=== PATIENT | male | born 1955 | race Caucasian/White ===

== ENCOUNTER 2018-09-14 13:58 | Outpatient (REF) | payer OTHER, SELFPAY ==
[2018-09-14 15:43] LABS: ALT 43 U/L (12-78); AST 32 U/L (15-37); Albumin 4.2 g/dL (3.4-5.0); Alkaline Phosphatase 86 U/L (46-116); Anion Gap 10.3 mmol/L (3-11); BUN 16 mg/dL (7-18); CO2 27.7 mmol/L (21.0-32.0); CREATININE 0.84 mg/dL (0.70-1.30); Calcium 9.3 mg/dL (8.5-10.1); Calculated LDL 111; Chloride 103 mmol/L (98-107); Cholesterol 202 mg/dL (50-200); Glucose 108 mg/dL (70-100); HDL Cholesterol 65 mg/dL (40-60); Potassium 4.6 mmol/L (3.5-5.1); Sodium 141 mmol/L (136-145); Total Protein 7.3 g/dL (6.4-8.2); Triglyceride 134 mg/dL (30-150)
[2018-09-14 15:48] LABS: HCT 50.7 % (40.0-50.0); HGB 16.5 g/dL (13.5-17.5); Mean Corp. HGB Concentration 32.5 g/dL (32.0-36.0); Mean Corpuscular Hemoglobin 28.3 pg (27.0-33.0); Mean Corpuscular Volume 86.8 fL (80-95); Mean Platelet Volume 10.6 fL (8.0-11.0); Platelet Count 271 x1000/uL (130-400); RBC 5.84 m/cumm (4.50-6.00); RBC Distribution Width 15.5 % (11.8-14.1)
== END 2018-09-14 14:18 ==
LOC: NCHCN 13:58
PROVIDERS: Visit Provider Nurse Practitioner Family
DX: Z00.00 Encounter for general adult medical examination without abnormal findings (principal); K57.92 Diverticulitis of intestine, part unspecified, without perforation or abscess without bleeding; I10 Essential (primary) hypertension; E78.00 Pure hypercholesterolemia, unspecified
CPT/HCPCS: 80053; 80061; 83721; 85027

== ENCOUNTER 2018-10-04 05:40 | Emergency (ER) | payer OTHER, SELFPAY ==
[2018-10-04 05:45] VITALS: BP 134/80; PULSE 72; RESP 16; TEMP 37.6; O2SAT 98
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
[2018-10-04] MEDS: fentaNYL 100 MCG/2 ML VIAL IVP (05:54)
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
[2018-10-04 06:39] VITALS: O2SAT 89
[2018-10-04 06:40] VITALS: O2SAT 89
[2018-10-04 06:43] VITALS: BP 126/76; PULSE 59; RESP 14; TEMP 37.1; O2SAT 95
[2018-10-04 06:50] VITALS: O2SAT 92
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
--- NOTE | 2018-10-04 06:58 | DI.CT_ITS ---
SYMPTOM/DIAGNOSIS: RIGHT SHOULDER ABNORMALITY, ? POSTERIOR DISLOCATION CT RIGHT SHOULDER: Comparison is made with plain films performed earlier the same day. There is no evidence of an acute fracture or dislocation. Bony densities are again noted above the AC joint, There are degenerative changes of the glenoid. No rib fractures are seen. There is no evidence of pneumothorax. The visualized portions of the right lung appear clear. IMPRESSION: Old deformity of the distal clavicle. No acute abnormality.
[2018-10-04] MEDS: Ondansetron 4 MG/2 ML VIAL (07:15)
--- NOTE | 2018-10-04 07:31 | DI.VRAD_ITS ---
EXAM: CT Right Upper Extremity Without Contrast, Shoulder EXAM DATE/TIME: 10/04/2018 6:59 AM CLINICAL HISTORY: 63 years old, male; Other: Right shoulder abnormality, ? posterior dislocation TECHNIQUE: Imaging protocol: CT of the Right upper extremity without contrast was performed. Exam focused on the shoulder. Coronal and sagittal reformatted images were created and reviewed. Radiation optimization: All CT scans at this facility use at least one of these dose optimization techniques: automated exposure control; mA and/or kV adjustment per patient size (includes targeted exams where dose is matched to clinical indication); or iterative reconstruction. COMPARISON: CR XR shoulder RT complete 2+V 10/04/2018 6:03 AM FINDINGS: Bones/joints: No evidence for dislocation Small cysts within the bony glenoid posteriorly suspicious for glenoid labral degeneration Calcifications noted at the level of the a.c. joint compatible with probable chronic inflammation or previous trauma Soft tissues: Subcutaneous stranding noted superior to the a.c. joint, nonspecific finding IMPRESSION: No acute findings and no evidence for dislocation Dictated and Authenticated by: Tyrese Jacques MD. Ordering:KIM Villafana MD
[2018-10-04 09:14] VITALS: BP 133/78; PULSE 63; RESP 15; O2SAT 98
== END 2018-10-04 09:10 | disposition home or self-care (01) ==
PROVIDERS: Emergency Provider Emergency Medicine; PCP Nurse Practitioner Family
DX: S40.011A Contusion of right shoulder, initial encounter (principal); S50.01XA Contusion of right elbow, initial encounter; M21.211 Flexion deformity, right shoulder; V18.0XXA Pedal cycle driver injured in noncollision transport accident in nontraffic accident, initial encounter
CPT/HCPCS: 96374; 99284; 73030; 73080; 73200; J2405; J3010; L3650

== ENCOUNTER 2023-01-29 11:56 | Outpatient (REF) | payer MEDICARE, SELFPAY ==
[2023-01-29 16:43] LABS: Anion Gap 9.5 mmol/L (3-11); BUN 17 mg/dL (7-18); CO2 27.5 mmol/L (21.0-32.0); CREATININE 0.8 mg/dL (0.70-1.30); Calcium 9.6 mg/dL (8.5-10.1); Calculated LDL 108 mg/dL (<100); Chloride 105 mmol/L (98-107); Cholesterol 201 mg/dL (<200); Estimated GFR 97.61 (mL/min/1.73m2); Glucose 96 mg/dL (74-106); HDL Cholesterol 52 mg/dL (40-60); Potassium 4.7 mmol/L (3.5-5.1); Sodium 142 mmol/L (136-145); Triglyceride 208 mg/dL (<150)
[2023-01-29 22:10] LABS: PSA, Screening 0.5 ng/mL (<=4.5)
== END 2023-01-29 11:57 | disposition home or self-care (01) ==
LOC: NCHCN 11:56
PROVIDERS: Visit Provider Family Medicine
DX: I10 Essential (primary) hypertension (principal); E66.3 Overweight; Z12.5 Encounter for screening for malignant neoplasm of prostate
CPT/HCPCS: 80048; 80061; 84153

== ENCOUNTER 2024-01-28 15:41 | Outpatient (REF) | payer MEDICARE, SELFPAY ==
[2024-01-28 16:27] LABS: Abs Immature Grans 0.04 10^3/uL (0.0-0.06); Absolute Basophil Count 0.07 10^3/uL (0.0-0.2); Absolute Eosinophil Count 0.07 10^3/uL (0.0-0.7); Absolute Lymphocyte Count 1.16 10^3/uL (1.2-3.4); Absolute Monocyte Count 0.41 10^3/uL (0.1-0.8); Basophils % 1.9 %; Eosinophils % 1.9 %; HCT 47.4 % (40.0-50.0); HGB 15.7 g/dL (13.5-17.5); Immature Grans % 1.1 %; Lymphocytes % 30.9 %; MCH 28.6 pg (27.0-33.0); MCHC 33.1 % (32.0-36.0); MCV 87 fL (80-95); MPV 10.3 fL (8.0-11.0); Monocytes % 10.9 %; Neutrophils % 53.3 %; Platelet Count 318 10^3/uL (130-400); RBC 5.48 10^6/uL (4.36-5.78); RDW 13.2 % (11.8-14.1); RDW-SD 41.8 fL; WBC 3.76 10^3/uL (4.4-10.8)
[2024-01-28 16:54] LABS: Iron 63 ug/dL (65-175); Total Iron Binding Capacity 302 ug/dL (250-450); Transferrin Sat 21 % (20-55)
[2024-01-28 17:03] LABS: ALT 34 U/L (16-63); AST 26 U/L (15-37); Albumin 4.1 g/dL (3.4-5.0); Alkaline Phosphatase 97 U/L (46-116); Anion Gap 10.3 mmol/L (3-11); BUN 20 mg/dL (7-18); CO2 28.7 mmol/L (21.0-32.0); Calcium 9.7 mg/dL (8.5-10.1); Chloride 106 mmol/L (98-107); Estimated GFR 82.49 (mL/min/1.73m2); Ferritin 456 ng/mL (26-388); Glucose 97 mg/dL (74-106); Potassium 4.7 mmol/L (3.5-5.1); Sodium 145 mmol/L (136-145); Total Protein 8.1 g/dL (6.4-8.2)
[2024-02-02 16:14] LABS: Result Summary NEGATIVE; Specimen WB Whole Blood
== END 2024-01-28 15:42 | disposition home or self-care (01) ==
LOC: NCHCN 15:41
PROVIDERS: Visit Provider Family Medicine
DX: R53.83 Other fatigue (principal); I10 Essential (primary) hypertension; R77.8 Other specified abnormalities of plasma proteins
CPT/HCPCS: 80053; 81256; 82728; 83540; 83550; 85025

== ENCOUNTER 2024-03-14 22:03 | Outpatient (REF) | payer MEDICARE, SELFPAY | END 2024-03-14 22:04 | disposition home or self-care (01) | LOC: NCHCN 22:03 | PROVIDERS: Visit Provider Family Medicine | DX: N39.0 Urinary tract infection, site not specified (principal); R82.89 Other abnormal findings on cytological and histological examination of urine | CPT/HCPCS: 87077; 87086; 87186 ==

== ENCOUNTER 2024-06-27 14:16 | Outpatient (REF) | payer MEDICARE, SELFPAY ==
[2024-06-27 14:58] LABS: Anion Gap 6.5 mmol/L (3-11); BUN 19 mg/dL (7-18); CO2 29.5 mmol/L (21.0-32.0); CREATININE 1.1 mg/dL (0.70-1.30); Calcium 9.2 mg/dL (8.5-10.1); Chloride 106 mmol/L (98-107); Estimated GFR 73.12 (mL/min/1.73m2); Glucose 132 mg/dL (74-106); Potassium 4.5 mmol/L (3.5-5.1); Sodium 142 mmol/L (136-145)
== END 2024-06-27 14:17 | disposition home or self-care (01) ==
LOC: NCHCN 14:16
PROVIDERS: PCP Family Medicine; Visit Provider Family Medicine
DX: I10 Essential (primary) hypertension (principal)
CPT/HCPCS: 80048

== ENCOUNTER 2025-02-02 11:07 | Outpatient (REF) | payer MEDICARE, SELFPAY ==
[2025-02-02 16:24] LABS: ALT 30 U/L (16-63); AST 29 U/L (15-37); Albumin 4.0 g/dL (3.4-5.0); Alkaline Phosphatase 90 U/L (46-116); Anion Gap 7.4 mmol/L (3-11); BUN 18 mg/dL (7-18); Bilirubin, Total 0.6 mg/dL (0.2-1.0); CO2 28.6 mmol/L (21.0-32.0); Calcium 9.4 mg/dL (8.5-10.1); Calculated LDL 40 mg/dL (<100); Chloride 104 mmol/L (98-107); Cholesterol 117 mg/dL (<200); Estimated GFR 93.03 (mL/min/1.73m2); Glucose 100 mg/dL (74-106); HDL Cholesterol 48 mg/dL (>or=40); Potassium 4.6 mmol/L (3.5-5.1); Sodium 140 mmol/L (136-145); Total Protein 7.7 g/dL (6.4-8.2); Triglyceride 147 mg/dL (<150)
== END 2025-02-02 11:08 | disposition home or self-care (01) ==
LOC: NCHCN 11:07
PROVIDERS: PCP Family Medicine; Visit Provider Family Medicine
DX: E78.5 Hyperlipidemia, unspecified (principal)
CPT/HCPCS: 80053; 80061